=== PATIENT | male | born 1950 | race Caucasian/White ===

== ENCOUNTER 2022-05-07 15:14 | Inpatient (IN) ==
[2022-05-07] MEDS ORDERED: SODIUM CHLORIDE 0.9% 1,000 ML IV STA ×2 (17:34→19:06)
[2022-05-07 18:30] LABS: Basophils % 0.1 % (0.0-0.8); Hematocrit 29.5 VOL% (42.0-52.0); Hemoglobin 10.2 GM/DL (14.0-18.0); Immature Granulocytes % 0.6 %; Immature Granulocytes Absolute 0.07 #; Lymphocytes # 1.3 10*3/uL (1.4-4.0); Lymphocytes % 10.5 % (21.2-54.2); Mean Corpuscular HGB Conc 34.6 GM/DL (32-36); Mean Corpuscular Volume 88.6 FL (87-102); Mean Platelet Volume 10.2 FL (9.6-12.0); Monocytes # 0.9 10*3/uL (0.11-0.8); Monocytes % 7.6 % (1.7-12.7); Neutrophils % 81.2 % (38.7-73.9); Platelet Count 203 T/CUMM (130-400); Red Blood Count 3.33 MC/CUMM (3.8-5.5); Red Cell Distribution Width 12.8 % (9.3-17.3); White Blood Count 12.1 T/CUMM (4-12)
[2022-05-07 18:44] LABS: PT Patient Result 11.5 SECS (10.1-12.1); Partial Thromboplastin Time 32.1 SECS (23.7-32.9)
[2022-05-07 19:05] LABS: Alanine Aminotransferase 18 U/L (16-61); Albumin 2.8 G/DL (3.4-5.0); Alkaline Phosphatase 62 U/L (45-117); Aspartate Amino Transferase 12 U/L (0-37); Blood Urea Nitrogen 67 MG/DL (7-18); Calcium 8.1 MG/DL (8.5-10.1); Carbon Dioxide 23 MMOL/L (21-32); Chloride 93 MMOL/L (98-107); Glucose 74 MG/DL (74-106); Osmolality,Calculated 272.2 MOS/KG (273-304); Sodium 127 MMOL/L (136-145); Total Protein 5.3 G/DL (6.4-8.2)
[2022-05-07 19:09] LABS: Potassium 6.1 MMOL/L (3.5-5.1)
[2022-05-07] MEDS ORDERED: DEXTROSE 50% 25 GM/50 ML VIAL IV STA (19:24)
[2022-05-07] MEDS ORDERED: INSULIN REGULAR 100 UNIT/ML IV STA (19:24)
[2022-05-07] MEDS ORDERED: CALCIUM GLUCONATE RIDER 1,000 MG/50 ML PREMIX IV ONE (19:24)
[2022-05-07] MEDS ORDERED: SODIUM POLYSTYRENE SULFATE 15 GM/60 ML BOTTLE PO STA (19:25)
[2022-05-07] MEDS ORDERED: DEXTROSE 50% 25 GM/50 ML SYRINGE IV STA (19:28)
[2022-05-07] MEDS ORDERED: SODIUM ZIRCONIUM CYCLOSILICATE 10 GM PACK PO ONE (19:37)
[2022-05-07] MEDS ORDERED: ONDANSETRON 4 MG/2 ML VIAL ONE (20:04)
[2022-05-07] MEDS ORDERED: ONDANSETRON 4 MG/2 ML VIAL IV STA (20:10)
[2022-05-07] MEDS ORDERED: GLUCAGON 1 MG VIAL IM PRN (21:05)
[2022-05-07] MEDS ORDERED: NICOTINE 21 MG/24 HR PATCH TRANSDERM PRN (21:05)
[2022-05-07] MEDS ORDERED: hydrALAZINE 20 MG/1 ML VIAL IV PRN (21:05)
[2022-05-07] MEDS ORDERED: MORPHINE 2 MG/1 ML SYRINGE IV PRN (21:05)
[2022-05-07] MEDS ORDERED: ONDANSETRON 4 MG/2 ML VIAL IV PRN (21:05)
[2022-05-07] MEDS ORDERED: ALBUTEROL/IPRATROPIUM 3 ML NEB RESP TX PRN (21:05)
[2022-05-07] MEDS ORDERED: DEXTROSE 10% 250 ML BAG IV PRN (21:14)
[2022-05-07] MEDS ORDERED: PIPERACILLIN/TAZOBACTAM 3,375 MG in SODIUM CHLORIDE 0.9% 100 ML IV SCH (22:00)
[2022-05-07] MEDS ORDERED: PIPERACILLIN/TAZOBACTAM 3,375 MG VIAL IV ONE (22:02)
[2022-05-07] MEDS ORDERED: SODIUM CHLORIDE 0.9% 100 ML IV ONE (22:02)
[2022-05-08] MEDS ORDERED: VANCOMYCIN INJ 1,000 MG in SODIUM CHLORIDE 0.9% 250 ML IV PRN (00:29)
[2022-05-08] MEDS ORDERED: VANCOMYCIN INJ 1,000 MG in SODIUM CHLORIDE 0.9% 250 ML IV SCH (00:30)
[2022-05-08] MEDS ORDERED: VANCOMYCIN INJ 1,750 MG in SODIUM CHLORIDE 0.9% 500 ML IV ONE (01:00)
[2022-05-08] MEDS ORDERED: SODIUM CHLORIDE 0.9% 1,000 ML IV ONE (01:30)
[2022-05-08] MEDS: SODIUM CHLORIDE 0.9% 1,000 ML IV SCH ×3 (02:23→15:31)
[2022-05-08 05:32] LABS: Arterial Base Excess iSTAT -8 MMOL/L (-2.5-2.5); Arterial Bicarbonate iSTAT 17.5 MMOL/L (20-26); Arterial O2 Saturation iSTAT 93 % (95-100); Arterial PCO2 iSTAT 33 MM HG (35-48); Arterial PO2 iSTAT 70 MM HG (80-95); Arterial Total CO2 iSTAT 18 MMO/L (23-27); Arterial pH iSTAT 7.339 (7.35-7.45)
[2022-05-08 05:56] LABS: Basophils % 0.1 % (0.0-0.8); Eosinophils % 0.3 % (0.00-10.9); Hematocrit 26.4 VOL% (42.0-52.0); Hemoglobin 9.1 GM/DL (14.0-18.0); Immature Granulocytes % 0.8 %; Immature Granulocytes Absolute 0.07 #; Lymphocytes # 1.4 10*3/uL (1.4-4.0); Lymphocytes % 15.4 % (21.2-54.2); Mean Corpuscular HGB Conc 34.5 GM/DL (32-36); Mean Corpuscular Volume 89.8 FL (87-102); Mean Platelet Volume 10.4 FL (9.6-12.0); Monocytes # 0.8 10*3/uL (0.11-0.8); Monocytes % 8.3 % (1.7-12.7); Neutrophils % 75.1 % (38.7-73.9); Platelet Count 174 T/CUMM (130-400); Red Blood Count 2.94 MC/CUMM (3.8-5.5); White Blood Count 9.1 T/CUMM (4-12)
[2022-05-08 06:10] LABS: Calcium 7.6 MG/DL (8.5-10.1); Osmolality,Calculated 280.7 MOS/KG (273-304); Potassium 5.1 MMOL/L (3.5-5.1)
[2022-05-08] MEDS: PANTOPRAZOLE 40 MG TABLET PO SCH (08:13)
[2022-05-08] MEDS ORDERED: PIPERACILLIN/TAZOBACTAM 3,375 MG in SODIUM CHLORIDE 0.9% 100 ML IV SCH (10:00)
[2022-05-08] MEDS: MEROPENEM 500 MG in SODIUM CHLORIDE 0.9% 100 ML IV SCH (13:23)
[2022-05-08 17:36] LABS: Bacteria,Urine Occasional /HPF (Few); Mucus,Urine Occasional /LPF (Occasional); Urine Appearance Clear (Clear); Urine Color Yellow (Yellow)
[2022-05-08 17:37] LABS: Bilirubin,Urine Negative (Negative); Blood, Urine Negative (Negative); Glucose,Urine (UA) Negative (Negative); Ketones,Urine Negative (Negative); Nitrite,Urine Negative (Negative); Protein,Urine 30 mg/dL (Negative); Urine Urobilinogen 0.2 eU/dL (<2.0); Urine pH 5.5 (4.5-8.0)
[2022-05-08] MEDS: ASCORBIC ACID 500 MG TABLET PO SCH (21:19)
[2022-05-09 05:47] LABS: Basophils % 0.3 % (0.0-0.8); Eosinophils % 0.3 % (0.00-10.9); Hematocrit 26.1 VOL% (42.0-52.0); Immature Granulocytes % 0.6 %; Immature Granulocytes Absolute 0.04 #; Lymphocytes # 0.8 10*3/uL (1.4-4.0); Lymphocytes % 13.5 % (21.2-54.2); Mean Corpuscular HGB Conc 34.5 GM/DL (32-36); Mean Corpuscular Volume 91.6 FL (87-102); Mean Platelet Volume 11.1 FL (9.6-12.0); Monocytes # 0.6 10*3/uL (0.11-0.8); Monocytes % 9.8 % (1.7-12.7); Neutrophils % 75.5 % (38.7-73.9); Platelet Count 175 T/CUMM (130-400); Red Blood Count 2.85 MC/CUMM (3.8-5.5); Red Cell Distribution Width 13.1 % (9.3-17.3); White Blood Count 6.2 T/CUMM (4-12)
[2022-05-09 06:03] LABS: Calcium 7.7 MG/DL (8.5-10.1); Osmolality,Calculated 275.8 MOS/KG (273-304); Potassium 4.4 MMOL/L (3.5-5.1)
[2022-05-09] MEDS: SODIUM CHLORIDE 0.9% 1,000 ML IV SCH ×2 (07:20→18:00)
[2022-05-09] MEDS: PANTOPRAZOLE 40 MG TABLET PO SCH (08:13)
[2022-05-09] MEDS: ASCORBIC ACID 500 MG TABLET PO SCH ×2 (08:14→22:21)
[2022-05-09] MEDS: ASPIRIN EC 81 MG TABLET PO SCH (08:14)
[2022-05-09] MEDS: CHOLECALCIFEROL 5,000 UNIT TABLET PO SCH (08:14)
[2022-05-09] MEDS: NICOTINE 21 MG/24 HR PATCH TRANSDERM SCH (08:20)
[2022-05-09] MEDS: MIDODRINE 5 MG TABLET PO SCH ×3 (08:44→22:21)
[2022-05-09 13:50] LABS: Calcium 7.7 MG/DL (8.5-10.1); Osmolality,Calculated 281.8 MOS/KG (273-304); Potassium 4.4 MMOL/L (3.5-5.1)
[2022-05-09] MEDS: MEROPENEM 500 MG in SODIUM CHLORIDE 0.9% 100 ML IV SCH (15:40)
[2022-05-10] MEDS: SODIUM CHLORIDE 0.9% 1,000 ML IV SCH ×3 (04:00→20:39)
[2022-05-10 05:35] LABS: Basophils % 0.1 % (0.0-0.8); Eosinophils % 0.3 % (0.00-10.9); Hematocrit 27.7 VOL% (42.0-52.0); Hemoglobin 9.4 GM/DL (14.0-18.0); Immature Granulocytes % 0.4 %; Immature Granulocytes Absolute 0.03 #; Lymphocytes # 1.4 10*3/uL (1.4-4.0); Lymphocytes % 17.6 % (21.2-54.2); Mean Corpuscular HGB Conc 33.9 GM/DL (32-36); Mean Corpuscular Volume 91.7 FL (87-102); Mean Platelet Volume 10.6 FL (9.6-12.0); Monocytes # 0.6 10*3/uL (0.11-0.8); Monocytes % 7.5 % (1.7-12.7); Neutrophils % 74.1 % (38.7-73.9); Platelet Count 227 T/CUMM (130-400); Red Blood Count 3.02 MC/CUMM (3.8-5.5); Red Cell Distribution Width 13.2 % (9.3-17.3); White Blood Count 7.7 T/CUMM (4-12)
[2022-05-10 05:54] LABS: Calcium 7.7 MG/DL (8.5-10.1); Osmolality,Calculated 287.1 MOS/KG (273-304); Potassium 4.1 MMOL/L (3.5-5.1)
[2022-05-10] MEDS: ASCORBIC ACID 500 MG TABLET PO SCH ×2 (09:23→20:38)
[2022-05-10] MEDS: ASPIRIN EC 81 MG TABLET PO SCH (09:23)
[2022-05-10] MEDS: NICOTINE 21 MG/24 HR PATCH TRANSDERM SCH (09:23)
[2022-05-10] MEDS: MIDODRINE 5 MG TABLET PO SCH ×3 (09:23→20:38)
[2022-05-10] MEDS: CHOLECALCIFEROL 5,000 UNIT TABLET PO SCH (09:24)
[2022-05-10] MEDS: PANTOPRAZOLE 40 MG TABLET PO SCH (09:24)
[2022-05-10] MEDS: MEROPENEM 500 MG in SODIUM CHLORIDE 0.9% 100 ML IV SCH (15:10)
[2022-05-11] MEDS ORDERED: ALUMINUM/MAGNES/SIMETH MAX STR 30 ML UDCUP PO ONE (00:06)
[2022-05-11 05:08] LABS: Basophils % 0.3 % (0.0-0.8); Eosinophils # 0.1 10*3/uL (0.0-0.87); Eosinophils % 0.8 % (0.00-10.9); Hemoglobin 9.1 GM/DL (14.0-18.0); Immature Granulocytes % 0.3 %; Immature Granulocytes Absolute 0.02 #; Lymphocytes # 1.1 10*3/uL (1.4-4.0); Lymphocytes % 18.7 % (21.2-54.2); Mean Platelet Volume 10.4 FL (9.6-12.0); Monocytes # 0.6 10*3/uL (0.11-0.8); Neutrophils % 69.9 % (38.7-73.9); Platelet Count 199 T/CUMM (130-400); Red Blood Count 2.89 MC/CUMM (3.8-5.5)
[2022-05-11 05:27] LABS: Osmolality,Calculated 284.2 MOS/KG (273-304); Potassium 4.2 MMOL/L (3.5-5.1)
[2022-05-11] MEDS: ASCORBIC ACID 500 MG TABLET PO SCH ×2 (10:30→22:17)
[2022-05-11] MEDS: MIDODRINE 5 MG TABLET PO SCH ×3 (10:30→21:16)
[2022-05-11] MEDS: PANTOPRAZOLE 40 MG TABLET PO SCH (10:30)
[2022-05-11] MEDS: ASPIRIN EC 81 MG TABLET PO SCH (10:30)
[2022-05-11] MEDS: CHOLECALCIFEROL 5,000 UNIT TABLET PO SCH (10:30)
[2022-05-11] MEDS: NICOTINE 21 MG/24 HR PATCH TRANSDERM SCH (10:31)
[2022-05-11] MEDS: SODIUM CHLORIDE 0.9% 1,000 ML IV SCH (12:38)
[2022-05-11] MEDS: MEROPENEM 500 MG in SODIUM CHLORIDE 0.9% 100 ML IV SCH (14:34)
[2022-05-12 05:06] LABS: Basophils % 0.3 % (0.0-0.8); Eosinophils # 0.1 10*3/uL (0.0-0.87); Eosinophils % 1.5 % (0.00-10.9); Hematocrit 29.1 VOL% (42.0-52.0); Hemoglobin 9.9 GM/DL (14.0-18.0); Immature Granulocytes % 0.7 %; Immature Granulocytes Absolute 0.05 #; Lymphocytes # 1.4 10*3/uL (1.4-4.0); Lymphocytes % 19.2 % (21.2-54.2); Mean Corpuscular Volume 90.4 FL (87-102); Mean Platelet Volume 10.2 FL (9.6-12.0); Monocytes # 0.7 10*3/uL (0.11-0.8); Monocytes % 9.9 % (1.7-12.7); Neutrophils % 68.4 % (38.7-73.9); Platelet Count 255 T/CUMM (130-400); Red Blood Count 3.22 MC/CUMM (3.8-5.5); White Blood Count 7.4 T/CUMM (4-12)
[2022-05-12 05:27] LABS: Calcium 8.3 MG/DL (8.5-10.1); Osmolality,Calculated 287.8 MOS/KG (273-304); Potassium 3.8 MMOL/L (3.5-5.1)
[2022-05-12] MEDS: MIDODRINE 5 MG TABLET PO SCH ×3 (08:48→21:45)
[2022-05-12] MEDS: ASPIRIN EC 81 MG TABLET PO SCH (08:50)
[2022-05-12] MEDS: PANTOPRAZOLE 40 MG TABLET PO SCH (08:50)
[2022-05-12] MEDS: ASCORBIC ACID 500 MG TABLET PO SCH ×2 (08:50→21:45)
[2022-05-12] MEDS: CHOLECALCIFEROL 5,000 UNIT TABLET PO SCH (09:06)
[2022-05-12] MEDS: NICOTINE 21 MG/24 HR PATCH TRANSDERM SCH (09:10)
[2022-05-12] MEDS: MEROPENEM 500 MG in SODIUM CHLORIDE 0.9% 100 ML IV SCH (13:59)
[2022-05-12] MEDS: ZALEPLON 5 MG CAPSULE PO PRN (21:44)
[2022-05-12] MEDS: APIXABAN 5 MG TABLET PO SCH (21:44)
[2022-05-13 05:47] LABS: Basophils % 0.3 % (0.0-0.8); Eosinophils # 0.2 10*3/uL (0.0-0.87); Eosinophils % 2.9 % (0.00-10.9); Hematocrit 25.1 VOL% (42.0-52.0); Hemoglobin 8.7 GM/DL (14.0-18.0); Immature Granulocytes % 0.6 %; Immature Granulocytes Absolute 0.04 #; Lymphocytes # 1.4 10*3/uL (1.4-4.0); Lymphocytes % 21.6 % (21.2-54.2); Mean Corpuscular HGB Conc 34.7 GM/DL (32-36); Mean Corpuscular Volume 90.9 FL (87-102); Mean Platelet Volume 10.3 FL (9.6-12.0); Monocytes # 0.9 10*3/uL (0.11-0.8); Monocytes % 13.1 % (1.7-12.7); Neutrophils % 61.5 % (38.7-73.9); Platelet Count 233 T/CUMM (130-400); Red Blood Count 2.76 MC/CUMM (3.8-5.5); Red Cell Distribution Width 13.2 % (9.3-17.3); White Blood Count 6.7 T/CUMM (4-12)
[2022-05-13 06:01] LABS: Calcium 8.1 MG/DL (8.5-10.1); Osmolality,Calculated 281.4 MOS/KG (273-304); Potassium 3.9 MMOL/L (3.5-5.1)
[2022-05-13 06:07] LABS: Albumin 2.2 G/DL (3.4-5.0); Bilirubin,Direct 0.21 MG/DL (0.0-0.20); Bilirubin,Indirect 0.3 MG/DL (0.0-1.0); Bilirubin,Total 0.5 MG/DL (0.20-1.00); Total Protein 4.4 G/DL (6.4-8.2)
[2022-05-13] MEDS ORDERED: MAGNESIUM SULF RIDER 2 GM/50 ML PREMIX IV ONE (07:32)
[2022-05-13] MEDS: ASCORBIC ACID 500 MG TABLET PO SCH ×2 (08:16→22:18)
[2022-05-13] MEDS: CHOLECALCIFEROL 5,000 UNIT TABLET PO SCH (08:16)
[2022-05-13] MEDS: ASPIRIN EC 81 MG TABLET PO SCH (08:16)
[2022-05-13] MEDS: MIDODRINE 5 MG TABLET PO SCH ×3 (08:17→22:19)
[2022-05-13] MEDS: PANTOPRAZOLE 40 MG TABLET PO SCH (08:17)
[2022-05-13] MEDS: APIXABAN 5 MG TABLET PO SCH ×2 (08:18→22:18)
[2022-05-13] MEDS: NICOTINE 21 MG/24 HR PATCH TRANSDERM SCH (08:32)
[2022-05-13] MEDS: CLORAZEPATE 3.75 MG TABLET PO PRN (22:18)
[2022-05-13] MEDS: ZALEPLON 5 MG CAPSULE PO PRN (22:18)
[2022-05-14] MEDS: CLORAZEPATE 3.75 MG TABLET PO PRN ×2 (04:19→20:57)
[2022-05-14 08:12] LABS: Basophils % 0.1 % (0.0-0.8); Eosinophils # 0.2 10*3/uL (0.0-0.87); Eosinophils % 2.2 % (0.00-10.9); Hematocrit 27.2 VOL% (42.0-52.0); Hemoglobin 9.3 GM/DL (14.0-18.0); Immature Granulocytes % 0.6 %; Immature Granulocytes Absolute 0.04 #; Lymphocytes # 1.7 10*3/uL (1.4-4.0); Lymphocytes % 24.8 % (21.2-54.2); Mean Corpuscular HGB Conc 34.2 GM/DL (32-36); Mean Platelet Volume 9.7 FL (9.6-12.0); Monocytes # 0.8 10*3/uL (0.11-0.8); Monocytes % 11.2 % (1.7-12.7); Neutrophils % 61.1 % (38.7-73.9); Platelet Count 256 T/CUMM (130-400); Red Blood Count 2.99 MC/CUMM (3.8-5.5); Red Cell Distribution Width 13.1 % (9.3-17.3); White Blood Count 6.9 T/CUMM (4-12)
[2022-05-14 08:30] LABS: Calcium 8.2 MG/DL (8.5-10.1); Osmolality,Calculated 280.4 MOS/KG (273-304); Potassium 4.1 MMOL/L (3.5-5.1)
[2022-05-14] MEDS: CHOLECALCIFEROL 5,000 UNIT TABLET PO SCH (09:12)
[2022-05-14] MEDS: PANTOPRAZOLE 40 MG TABLET PO SCH (09:12)
[2022-05-14] MEDS: APIXABAN 5 MG TABLET PO SCH ×2 (09:12→20:58)
[2022-05-14] MEDS: ASCORBIC ACID 500 MG TABLET PO SCH ×2 (09:13→20:58)
[2022-05-14] MEDS: ASPIRIN EC 81 MG TABLET PO SCH (09:13)
[2022-05-14] MEDS: NICOTINE 21 MG/24 HR PATCH TRANSDERM SCH (09:13)
[2022-05-14] MEDS: MIDODRINE 5 MG TABLET PO SCH ×3 (09:17→20:58)
[2022-05-15 05:10] LABS: Basophils % 0.2 % (0.0-0.8); Eosinophils # 0.1 10*3/uL (0.0-0.87); Hemoglobin 8.8 GM/DL (14.0-18.0); Immature Granulocytes % 0.5 %; Immature Granulocytes Absolute 0.03 #; Lymphocytes # 1.4 10*3/uL (1.4-4.0); Lymphocytes % 20.5 % (21.2-54.2); Mean Corpuscular HGB Conc 33.8 GM/DL (32-36); Mean Corpuscular Volume 91.2 FL (87-102); Mean Platelet Volume 9.8 FL (9.6-12.0); Monocytes # 0.6 10*3/uL (0.11-0.8); Monocytes % 9.6 % (1.7-12.7); Neutrophils % 67.2 % (38.7-73.9); Platelet Count 238 T/CUMM (130-400); Red Blood Count 2.85 MC/CUMM (3.8-5.5); Red Cell Distribution Width 12.8 % (9.3-17.3); White Blood Count 6.6 T/CUMM (4-12)
[2022-05-15 05:28] LABS: Calcium 8.1 MG/DL (8.5-10.1); Osmolality,Calculated 282.2 MOS/KG (273-304); Potassium 4.4 MMOL/L (3.5-5.1)
[2022-05-15] MEDS: MIDODRINE 5 MG TABLET PO SCH ×2 (09:27→14:37)
[2022-05-15] MEDS: ASPIRIN EC 81 MG TABLET PO SCH (09:27)
[2022-05-15] MEDS: APIXABAN 5 MG TABLET PO SCH ×2 (09:27→21:14)
[2022-05-15] MEDS: CHOLECALCIFEROL 5,000 UNIT TABLET PO SCH (09:27)
[2022-05-15] MEDS: ASCORBIC ACID 500 MG TABLET PO SCH ×2 (09:27→21:14)
[2022-05-15] MEDS: PANTOPRAZOLE 40 MG TABLET PO SCH (09:27)
[2022-05-15] MEDS: NICOTINE 21 MG/24 HR PATCH TRANSDERM SCH (09:28)
[2022-05-15] MEDS ORDERED: ALUM/MAG/SIMETH/LIDO VISC 1:1 30 ML BOTTLE PO ONE (10:34)
[2022-05-15] MEDS: FUROSEMIDE 40 MG TABLET PO SCH (11:57)
[2022-05-15] MEDS: CLORAZEPATE 3.75 MG TABLET PO PRN (21:18)
[2022-05-16 05:29] LABS: Basophils % 0.3 % (0.0-0.8); Eosinophils # 0.1 10*3/uL (0.0-0.87); Eosinophils % 1.3 % (0.00-10.9); Hematocrit 26.4 VOL% (42.0-52.0); Hemoglobin 8.9 GM/DL (14.0-18.0); Immature Granulocytes % 0.4 %; Immature Granulocytes Absolute 0.03 #; Lymphocytes # 1.8 10*3/uL (1.4-4.0); Lymphocytes % 25.5 % (21.2-54.2); Mean Corpuscular HGB Conc 33.7 GM/DL (32-36); Mean Corpuscular Volume 91.3 FL (87-102); Mean Platelet Volume 10.3 FL (9.6-12.0); Monocytes # 0.6 10*3/uL (0.11-0.8); Monocytes % 7.9 % (1.7-12.7); Neutrophils % 64.6 % (38.7-73.9); Platelet Count 273 T/CUMM (130-400); Red Blood Count 2.89 MC/CUMM (3.8-5.5); Red Cell Distribution Width 12.9 % (9.3-17.3)
[2022-05-16 05:50] LABS: Calcium 8.3 MG/DL (8.5-10.1); Osmolality,Calculated 284.1 MOS/KG (273-304); Potassium 3.9 MMOL/L (3.5-5.1)
[2022-05-16] MEDS: ASCORBIC ACID 500 MG TABLET PO SCH ×2 (09:48→21:37)
[2022-05-16] MEDS: FUROSEMIDE 40 MG TABLET PO SCH (09:48)
[2022-05-16] MEDS: NICOTINE 21 MG/24 HR PATCH TRANSDERM SCH (09:48)
[2022-05-16] MEDS: ASPIRIN EC 81 MG TABLET PO SCH (09:48)
[2022-05-16] MEDS: PANTOPRAZOLE 40 MG TABLET PO SCH (09:48)
[2022-05-16] MEDS: CHOLECALCIFEROL 5,000 UNIT TABLET PO SCH (09:48)
[2022-05-16] MEDS: APIXABAN 5 MG TABLET PO SCH ×2 (09:48→21:37)
[2022-05-16] MEDS ORDERED: ALBUMIN 25% 12.5 GM/50 ML VIAL IV ONE (15:00)
[2022-05-16] MEDS ORDERED: FUROSEMIDE 40 MG/4 ML VIAL IV ONE (15:30)
[2022-05-16] MEDS ORDERED: ALUMINUM/MAGNES/SIMETH MAX STR 30 ML UDCUP PO PRN (18:23)
[2022-05-16] MEDS: CLORAZEPATE 3.75 MG TABLET PO PRN (21:37)
[2022-05-17] MEDS: CLORAZEPATE 3.75 MG TABLET PO PRN ×2 (03:33→21:02)
[2022-05-17 05:19] LABS: Basophils % 0.2 % (0.0-0.8); Eosinophils # 0.1 10*3/uL (0.0-0.87); Eosinophils % 1.3 % (0.00-10.9); Hematocrit 24.9 VOL% (42.0-52.0); Hemoglobin 8.6 GM/DL (14.0-18.0); Immature Granulocytes % 0.5 %; Immature Granulocytes Absolute 0.03 #; Lymphocytes # 1.3 10*3/uL (1.4-4.0); Lymphocytes % 20.6 % (21.2-54.2); Mean Corpuscular HGB Conc 34.5 GM/DL (32-36); Mean Corpuscular Volume 90.5 FL (87-102); Mean Platelet Volume 10.2 FL (9.6-12.0); Monocytes # 0.6 10*3/uL (0.11-0.8); Monocytes % 8.7 % (1.7-12.7); Neutrophils % 68.7 % (38.7-73.9); Platelet Count 290 T/CUMM (130-400); Red Blood Count 2.75 MC/CUMM (3.8-5.5); Red Cell Distribution Width 13.1 % (9.3-17.3); White Blood Count 6.3 T/CUMM (4-12)
[2022-05-17 05:40] LABS: Calcium 8.2 MG/DL (8.5-10.1); Osmolality,Calculated 289.8 MOS/KG (273-304); Potassium 3.9 MMOL/L (3.5-5.1)
[2022-05-17] MEDS: ASPIRIN EC 81 MG TABLET PO SCH (09:23)
[2022-05-17] MEDS: APIXABAN 5 MG TABLET PO SCH ×2 (09:23→21:02)
[2022-05-17] MEDS: ASCORBIC ACID 500 MG TABLET PO SCH ×2 (09:23→21:02)
[2022-05-17] MEDS: PANTOPRAZOLE 40 MG TABLET PO SCH (09:24)
[2022-05-17] MEDS: NICOTINE 21 MG/24 HR PATCH TRANSDERM SCH (09:26)
[2022-05-17] MEDS: SENNA 8.6 MG TABLET PO SCH (09:30)
[2022-05-17] MEDS: CHOLECALCIFEROL 5,000 UNIT TABLET PO SCH (09:30)
[2022-05-17] MEDS ORDERED: FUROSEMIDE 40 MG TABLET PO SCH (15:27)
[2022-05-17] MEDS: INSULIN LISPRO 100 UNIT/ML SUBCUT SCH (21:03)
[2022-05-18 05:26] LABS: Basophils % 0.2 % (0.0-0.8); Eosinophils % 0.6 % (0.00-10.9); Hematocrit 23.6 VOL% (42.0-52.0); Immature Granulocytes % 0.5 %; Immature Granulocytes Absolute 0.03 #; Lymphocytes # 0.9 10*3/uL (1.4-4.0); Lymphocytes % 13.1 % (21.2-54.2); Mean Corpuscular HGB Conc 33.9 GM/DL (32-36); Mean Corpuscular Volume 91.8 FL (87-102); Monocytes # 0.4 10*3/uL (0.11-0.8); Monocytes % 6.8 % (1.7-12.7); Neutrophils % 78.8 % (38.7-73.9); Platelet Count 286 T/CUMM (130-400); Red Blood Count 2.57 MC/CUMM (3.8-5.5); Red Cell Distribution Width 13.1 % (9.3-17.3); White Blood Count 6.5 T/CUMM (4-12)
[2022-05-18 05:40] LABS: Osmolality,Calculated 281.2 MOS/KG (273-304); Potassium 3.6 MMOL/L (3.5-5.1)
[2022-05-18] MEDS: ASCORBIC ACID 500 MG TABLET PO SCH ×2 (08:56→21:31)
[2022-05-18] MEDS: CHOLECALCIFEROL 5,000 UNIT TABLET PO SCH (08:56)
[2022-05-18] MEDS: SENNA 8.6 MG TABLET PO SCH (08:57)
[2022-05-18] MEDS: TORSEMIDE 20 MG TABLET PO SCH ×2 (08:57→18:00)
[2022-05-18] MEDS: NICOTINE 21 MG/24 HR PATCH TRANSDERM SCH (08:57)
[2022-05-18] MEDS: PANTOPRAZOLE 40 MG TABLET PO SCH (08:57)
[2022-05-18] MEDS: ASPIRIN EC 81 MG TABLET PO SCH (08:57)
[2022-05-18] MEDS: APIXABAN 5 MG TABLET PO SCH ×2 (08:57→21:31)
[2022-05-18] MEDS: INSULIN LISPRO 100 UNIT/ML SUBCUT SCH ×4 (08:58→21:33)
[2022-05-18] MEDS: SODIUM BICARBONATE 650 MG TABLET PO SCH ×2 (12:37→21:31)
[2022-05-18] MEDS: CLORAZEPATE 3.75 MG TABLET PO PRN (21:30)
[2022-05-19] MEDS: INSULIN LISPRO 100 UNIT/ML SUBCUT SCH ×4 (07:33→21:48)
[2022-05-19] MEDS: SODIUM BICARBONATE 650 MG TABLET PO SCH ×2 (08:13→21:41)
[2022-05-19] MEDS: TORSEMIDE 20 MG TABLET PO SCH (08:13)
[2022-05-19] MEDS: SENNA 8.6 MG TABLET PO SCH (08:13)
[2022-05-19] MEDS: ASCORBIC ACID 500 MG TABLET PO SCH ×2 (08:14→21:42)
[2022-05-19] MEDS: ASPIRIN EC 81 MG TABLET PO SCH (08:14)
[2022-05-19] MEDS: CHOLECALCIFEROL 5,000 UNIT TABLET PO SCH (08:14)
[2022-05-19] MEDS: PANTOPRAZOLE 40 MG TABLET PO SCH (08:14)
[2022-05-19] MEDS: APIXABAN 5 MG TABLET PO SCH ×2 (08:14→21:42)
[2022-05-19] MEDS: NICOTINE 21 MG/24 HR PATCH TRANSDERM SCH (08:16)
[2022-05-19 08:56] LABS: Basophils % 0.4 % (0.0-0.8); Eosinophils # 0.1 10*3/uL (0.0-0.87); Eosinophils % 1.5 % (0.00-10.9); Hematocrit 28.2 VOL% (42.0-52.0); Hemoglobin 9.5 GM/DL (14.0-18.0); Immature Granulocytes % 0.5 %; Immature Granulocytes Absolute 0.04 #; Lymphocytes # 1.7 10*3/uL (1.4-4.0); Lymphocytes % 23.7 % (21.2-54.2); Mean Corpuscular HGB Conc 33.7 GM/DL (32-36); Mean Corpuscular Volume 91.9 FL (87-102); Mean Platelet Volume 9.9 FL (9.6-12.0); Monocytes # 0.5 10*3/uL (0.11-0.8); Monocytes % 7.4 % (1.7-12.7); Neutrophils % 66.5 % (38.7-73.9); Platelet Count 379 T/CUMM (130-400); Red Blood Count 3.07 MC/CUMM (3.8-5.5); Red Cell Distribution Width 13.2 % (9.3-17.3); White Blood Count 7.3 T/CUMM (4-12)
[2022-05-19 09:13] LABS: Calcium 8.2 MG/DL (8.5-10.1); Osmolality,Calculated 280.5 MOS/KG (273-304); Potassium 4.1 MMOL/L (3.5-5.1)
[2022-05-19] MEDS ORDERED: SODIUM CHLORIDE 0.9% 2,000 ML IV ONE (15:28)
[2022-05-19] MEDS ORDERED: SODIUM CHLORIDE 0.9% 1,000 ML IV SCH ×2 (15:30)
[2022-05-19] MEDS: SODIUM CHLORIDE 0.9% 1,000 ML IV SCH (17:18)
[2022-05-19] MEDS: CLORAZEPATE 3.75 MG TABLET PO PRN (21:48)
[2022-05-20 06:54] LABS: Basophils % 0.5 % (0.0-0.8); Eosinophils # 0.1 10*3/uL (0.0-0.87); Eosinophils % 1.5 % (0.00-10.9); Hematocrit 24.6 VOL% (42.0-52.0); Hemoglobin 8.4 GM/DL (14.0-18.0); Immature Granulocytes % 0.3 %; Immature Granulocytes Absolute 0.02 #; Lymphocytes # 1.8 10*3/uL (1.4-4.0); Lymphocytes % 29.8 % (21.2-54.2); Mean Corpuscular HGB Conc 34.1 GM/DL (32-36); Mean Corpuscular Volume 91.8 FL (87-102); Monocytes # 0.6 10*3/uL (0.11-0.8); Monocytes % 9.4 % (1.7-12.7); Neutrophils % 58.5 % (38.7-73.9); Platelet Count 342 T/CUMM (130-400); Red Blood Count 2.68 MC/CUMM (3.8-5.5); Red Cell Distribution Width 13.2 % (9.3-17.3)
[2022-05-20 07:07] LABS: Calcium 7.8 MG/DL (8.5-10.1); Osmolality,Calculated 283.1 MOS/KG (273-304); Potassium 3.8 MMOL/L (3.5-5.1)
[2022-05-20] MEDS: SODIUM CHLORIDE 0.9% 1,000 ML IV SCH ×2 (08:58→22:09)
[2022-05-20] MEDS: INSULIN LISPRO 100 UNIT/ML SUBCUT SCH ×4 (09:02→22:06)
[2022-05-20] MEDS: NICOTINE 21 MG/24 HR PATCH TRANSDERM SCH (09:03)
[2022-05-20] MEDS: SENNA 8.6 MG TABLET PO SCH (09:04)
[2022-05-20] MEDS: PANTOPRAZOLE 40 MG TABLET PO SCH (09:04)
[2022-05-20] MEDS: SODIUM BICARBONATE 650 MG TABLET PO SCH ×2 (09:04→22:06)
[2022-05-20] MEDS: ASPIRIN EC 81 MG TABLET PO SCH (09:04)
[2022-05-20] MEDS: ASCORBIC ACID 500 MG TABLET PO SCH ×2 (09:04→22:06)
[2022-05-20] MEDS: CHOLECALCIFEROL 5,000 UNIT TABLET PO SCH (09:05)
[2022-05-20] MEDS: APIXABAN 5 MG TABLET PO SCH ×2 (09:05→22:06)
[2022-05-20] MEDS: CLORAZEPATE 3.75 MG TABLET PO PRN (22:09)
[2022-05-21 04:43] LABS: Basophils % 0.8 % (0.0-0.8); Eosinophils # 0.1 10*3/uL (0.0-0.87); Eosinophils % 1.6 % (0.00-10.9); Hemoglobin 8.9 GM/DL (14.0-18.0); Immature Granulocytes % 0.2 %; Immature Granulocytes Absolute 0.01 #; Lymphocytes # 1.7 10*3/uL (1.4-4.0); Lymphocytes % 32.9 % (21.2-54.2); Mean Corpuscular HGB Conc 34.2 GM/DL (32-36); Mean Corpuscular Volume 91.9 FL (87-102); Mean Platelet Volume 9.6 FL (9.6-12.0); Monocytes # 0.5 10*3/uL (0.11-0.8); Monocytes % 9.9 % (1.7-12.7); Neutrophils % 54.6 % (38.7-73.9); Platelet Count 391 T/CUMM (130-400); Red Blood Count 2.83 MC/CUMM (3.8-5.5); Red Cell Distribution Width 13.3 % (9.3-17.3); White Blood Count 5.1 T/CUMM (4-12)
[2022-05-21 05:04] LABS: Calcium 7.8 MG/DL (8.5-10.1); Osmolality,Calculated 289.5 MOS/KG (273-304); Potassium 3.6 MMOL/L (3.5-5.1)
[2022-05-21] MEDS: ASCORBIC ACID 500 MG TABLET PO SCH ×2 (08:19→21:24)
[2022-05-21] MEDS: SODIUM BICARBONATE 650 MG TABLET PO SCH ×2 (08:19→21:24)
[2022-05-21] MEDS: ASPIRIN EC 81 MG TABLET PO SCH (08:20)
[2022-05-21] MEDS: APIXABAN 5 MG TABLET PO SCH ×2 (08:20→21:24)
[2022-05-21] MEDS: SENNA 8.6 MG TABLET PO SCH (08:21)
[2022-05-21] MEDS: PANTOPRAZOLE 40 MG TABLET PO SCH (08:21)
[2022-05-21] MEDS: INSULIN LISPRO 100 UNIT/ML SUBCUT SCH ×4 (08:22→21:23)
[2022-05-21] MEDS: CHOLECALCIFEROL 5,000 UNIT TABLET PO SCH (08:22)
[2022-05-21] MEDS: NICOTINE 21 MG/24 HR PATCH TRANSDERM SCH (08:40)
[2022-05-21] MEDS: SODIUM CHLORIDE 0.9% 1,000 ML IV SCH ×2 (10:51→14:30)
[2022-05-22] MEDS ORDERED: CLORAZEPATE 3.75 MG TABLET PO ONE ×2 (04:00→21:52)
[2022-05-22 04:34] LABS: Basophils % 0.5 % (0.0-0.8); Eosinophils # 0.1 10*3/uL (0.0-0.87); Eosinophils % 1.2 % (0.00-10.9); Hematocrit 26.5 VOL% (42.0-52.0); Hemoglobin 8.8 GM/DL (14.0-18.0); Immature Granulocytes % 0.4 %; Immature Granulocytes Absolute 0.03 #; Lymphocytes # 1.7 10*3/uL (1.4-4.0); Lymphocytes % 21.7 % (21.2-54.2); Mean Corpuscular HGB Conc 33.2 GM/DL (32-36); Mean Corpuscular Volume 93.6 FL (87-102); Mean Platelet Volume 10.1 FL (9.6-12.0); Monocytes # 0.6 10*3/uL (0.11-0.8); Monocytes % 7.5 % (1.7-12.7); Neutrophils % 68.7 % (38.7-73.9); Platelet Count 394 T/CUMM (130-400); Red Blood Count 2.83 MC/CUMM (3.8-5.5); Red Cell Distribution Width 13.3 % (9.3-17.3); White Blood Count 7.7 T/CUMM (4-12)
[2022-05-22 04:53] LABS: Calcium 7.9 MG/DL (8.5-10.1); Osmolality,Calculated 288.7 MOS/KG (273-304); Potassium 3.6 MMOL/L (3.5-5.1)
[2022-05-22] MEDS: INSULIN LISPRO 100 UNIT/ML SUBCUT SCH ×4 (09:16→21:11)
[2022-05-22] MEDS: NICOTINE 21 MG/24 HR PATCH TRANSDERM SCH (09:16)
[2022-05-22] MEDS: SENNA 8.6 MG TABLET PO SCH (09:17)
[2022-05-22] MEDS: ASCORBIC ACID 500 MG TABLET PO SCH ×2 (09:17→21:11)
[2022-05-22] MEDS: PANTOPRAZOLE 40 MG TABLET PO SCH (09:17)
[2022-05-22] MEDS: ASPIRIN EC 81 MG TABLET PO SCH (09:17)
[2022-05-22] MEDS: CHOLECALCIFEROL 5,000 UNIT TABLET PO SCH (09:17)
[2022-05-22] MEDS: APIXABAN 5 MG TABLET PO SCH ×2 (09:17→21:12)
[2022-05-22] MEDS: SODIUM BICARBONATE 650 MG TABLET PO SCH ×2 (09:17→21:12)
[2022-05-22] MEDS: SODIUM CHLORIDE 0.9% 1,000 ML IV SCH ×3 (12:40→18:16)
[2022-05-23] MEDS: SODIUM CHLORIDE 0.9% 1,000 ML IV SCH ×3 (01:06→13:45)
[2022-05-23 06:25] LABS: Calcium 8.2 MG/DL (8.5-10.1); Osmolality,Calculated 290.4 MOS/KG (273-304); Potassium 3.9 MMOL/L (3.5-5.1)
[2022-05-23] MEDS: INSULIN LISPRO 100 UNIT/ML SUBCUT SCH ×4 (08:11→21:37)
[2022-05-23] MEDS: SODIUM BICARBONATE 650 MG TABLET PO SCH ×2 (09:14→21:37)
[2022-05-23] MEDS: SENNA 8.6 MG TABLET PO SCH (09:14)
[2022-05-23] MEDS: CHOLECALCIFEROL 5,000 UNIT TABLET PO SCH (09:15)
[2022-05-23] MEDS: NICOTINE 21 MG/24 HR PATCH TRANSDERM SCH (09:15)
[2022-05-23] MEDS: APIXABAN 5 MG TABLET PO SCH ×2 (09:15→21:37)
[2022-05-23] MEDS: ASPIRIN EC 81 MG TABLET PO SCH (09:15)
[2022-05-23] MEDS: PANTOPRAZOLE 40 MG TABLET PO SCH (09:15)
[2022-05-23] MEDS: ASCORBIC ACID 500 MG TABLET PO SCH ×2 (09:15→21:37)
[2022-05-23] MEDS ORDERED: MELATONIN 3 MG TABLET PO PRN (10:26)
[2022-05-23 18:31] LABS: Arterial Base Excess iSTAT -8 MMOL/L (-2.5-2.5); Arterial O2 Saturation iSTAT 96 % (95-100); Arterial PCO2 iSTAT 29 MM HG (35-48); Arterial PO2 iSTAT 81 MM HG (80-95); Arterial Total CO2 iSTAT 17 MMO/L (23-27); Arterial pH iSTAT 7.358 (7.35-7.45)
[2022-05-23] MEDS ORDERED: PIPERACILLIN/TAZOBACTAM 2,250 MG in SODIUM CHLORIDE 0.9% 100 ML IV ONE (19:30)
[2022-05-23] MEDS ORDERED: CLORAZEPATE 3.75 MG TABLET PO ONE (21:00)
[2022-05-24] MEDS ORDERED: CLORAZEPATE 3.75 MG TABLET PO ONE (04:31)
[2022-05-24 05:46] LABS: Basophils % 0.8 % (0.0-0.8); Eosinophils % 0.8 % (0.00-10.9); Hematocrit 26.5 VOL% (42.0-52.0); Hemoglobin 8.6 GM/DL (14.0-18.0); Immature Granulocytes % 0.2 %; Immature Granulocytes Absolute 0.01 #; Lymphocytes # 1.3 10*3/uL (1.4-4.0); Lymphocytes % 25.3 % (21.2-54.2); Mean Corpuscular HGB Conc 32.5 GM/DL (32-36); Mean Platelet Volume 10.2 FL (9.6-12.0); Monocytes # 0.4 10*3/uL (0.11-0.8); Monocytes % 8.1 % (1.7-12.7); Neutrophils % 64.8 % (38.7-73.9); Platelet Count 405 T/CUMM (130-400); Red Blood Count 2.79 MC/CUMM (3.8-5.5); Red Cell Distribution Width 13.4 % (9.3-17.3); White Blood Count 5.2 T/CUMM (4-12)
[2022-05-24 06:12] LABS: Calcium 8.2 MG/DL (8.5-10.1); Osmolality,Calculated 292.4 MOS/KG (273-304); Potassium 3.7 MMOL/L (3.5-5.1)
[2022-05-24] MEDS: INSULIN LISPRO 100 UNIT/ML SUBCUT SCH ×4 (08:27→22:11)
[2022-05-24] MEDS: NICOTINE 21 MG/24 HR PATCH TRANSDERM SCH (08:27)
[2022-05-24] MEDS: APIXABAN 5 MG TABLET PO SCH ×2 (08:28→22:10)
[2022-05-24] MEDS: SENNA 8.6 MG TABLET PO SCH (08:28)
[2022-05-24] MEDS: ASCORBIC ACID 500 MG TABLET PO SCH ×2 (08:28→22:10)
[2022-05-24] MEDS: SODIUM BICARBONATE 650 MG TABLET PO SCH ×2 (08:28→22:10)
[2022-05-24] MEDS: PANTOPRAZOLE 40 MG TABLET PO SCH (08:28)
[2022-05-24] MEDS: CHOLECALCIFEROL 5,000 UNIT TABLET PO SCH (08:28)
[2022-05-24] MEDS: ASPIRIN EC 81 MG TABLET PO SCH (08:29)
[2022-05-25] MEDS: CLORAZEPATE 3.75 MG TABLET PO PRN (03:55)
[2022-05-25 05:22] LABS: Calcium 7.9 MG/DL (8.5-10.1); Potassium 3.6 MMOL/L (3.5-5.1)
[2022-05-25] MEDS: INSULIN LISPRO 100 UNIT/ML SUBCUT SCH ×4 (08:16→20:01)
[2022-05-25] MEDS: APIXABAN 5 MG TABLET PO SCH (08:57)
[2022-05-25] MEDS: ASPIRIN EC 81 MG TABLET PO SCH (08:57)
[2022-05-25] MEDS: SODIUM BICARBONATE 650 MG TABLET PO SCH ×2 (08:57→21:13)
[2022-05-25] MEDS: ASCORBIC ACID 500 MG TABLET PO SCH ×2 (08:57→21:13)
[2022-05-25] MEDS: CHOLECALCIFEROL 5,000 UNIT TABLET PO SCH (08:57)
[2022-05-25] MEDS: PANTOPRAZOLE 40 MG TABLET PO SCH (08:58)
[2022-05-25] MEDS: NICOTINE 21 MG/24 HR PATCH TRANSDERM SCH (08:58)
[2022-05-25] MEDS: SENNA 8.6 MG TABLET PO SCH (08:58)
[2022-05-26 04:57] LABS: Basophils # 0.1 10*3/uL (0.0-0.2); Basophils % 1.2 % (0.0-0.8); Eosinophils # 0.1 10*3/uL (0.0-0.87); Eosinophils % 1.9 % (0.00-10.9); Hemoglobin 9.1 GM/DL (14.0-18.0); Immature Granulocytes % 0.6 %; Immature Granulocytes Absolute 0.03 #; Lymphocytes # 1.2 10*3/uL (1.4-4.0); Lymphocytes % 23.6 % (21.2-54.2); Mean Corpuscular HGB Conc 32.5 GM/DL (32-36); Mean Corpuscular Volume 95.2 FL (87-102); Mean Platelet Volume 9.5 FL (9.6-12.0); Monocytes # 0.4 10*3/uL (0.11-0.8); Monocytes % 7.8 % (1.7-12.7); Neutrophils % 64.9 % (38.7-73.9); Platelet Count 348 T/CUMM (130-400); Red Blood Count 2.94 MC/CUMM (3.8-5.5); Red Cell Distribution Width 13.7 % (9.3-17.3); White Blood Count 5.2 T/CUMM (4-12)
[2022-05-26 05:08] LABS: PT Patient Result 10.8 SECS (10.1-12.1); Partial Thromboplastin Time 29.4 SECS (23.7-32.9)
[2022-05-26 05:12] LABS: Calcium 7.9 MG/DL (8.5-10.1)
[2022-05-26] MEDS: INSULIN LISPRO 100 UNIT/ML SUBCUT SCH ×4 (07:48→22:03)
[2022-05-26] MEDS: ASPIRIN EC 81 MG TABLET PO SCH (09:00)
[2022-05-26] MEDS: CHOLECALCIFEROL 5,000 UNIT TABLET PO SCH (09:00)
[2022-05-26] MEDS: ASCORBIC ACID 500 MG TABLET PO SCH ×2 (09:00→22:00)
[2022-05-26] MEDS: SENNA 8.6 MG TABLET PO SCH (09:00)
[2022-05-26] MEDS: PANTOPRAZOLE 40 MG TABLET PO SCH (09:00)
[2022-05-26] MEDS: SODIUM BICARBONATE 650 MG TABLET PO SCH ×2 (09:00→21:59)
[2022-05-26] MEDS: NICOTINE 21 MG/24 HR PATCH TRANSDERM SCH (09:50)
[2022-05-26] MEDS ORDERED: MIDAZOLAM 2 MG/2 ML VIAL ONE (10:27)
[2022-05-26] MEDS ORDERED: fentaNYL 100 MCG/2 ML VIAL ONE (10:27)
[2022-05-26] MEDS ORDERED: KETAMINE 500 MG/10 ML VIAL ONE (10:28)
[2022-05-26] MEDS ORDERED: TISSUE ADHESIVE 1 EACH APPLICATOR TOP ONE (10:29)
[2022-05-26] MEDS ORDERED: HEPARIN 5,000 UNIT/1 ML VIAL ONE (10:29)
[2022-05-26] MEDS ORDERED: BUPIVACAINE MPF 0.25% 10 ML VIAL ONE (10:29)
[2022-05-26] MEDS ORDERED: LIDOCAINE MPF 1% /EPI 30 ML VIAL ONE (10:29)
[2022-05-26] MEDS ORDERED: SODIUM CHLORIDE 0.9% 250 ML IV SCH (11:00)
[2022-05-26 11:56] LABS: Hepatitis B Surface Ag Quant < 0.10 Index; Hepatitis B Surface Ag Result Non-Reactive (NonReactive)
[2022-05-26] MEDS ORDERED: HEPARIN 10,000 UNIT/10 ML VIAL IV SCH (13:30)
[2022-05-27 05:10] LABS: Basophils # 0.1 10*3/uL (0.0-0.2); Basophils % 0.9 % (0.0-0.8); Eosinophils # 0.1 10*3/uL (0.0-0.87); Eosinophils % 1.6 % (0.00-10.9); Hematocrit 27.7 VOL% (42.0-52.0); Immature Granulocytes % 0.2 %; Immature Granulocytes Absolute 0.01 #; Lymphocytes # 1.3 10*3/uL (1.4-4.0); Lymphocytes % 23.5 % (21.2-54.2); Mean Corpuscular HGB Conc 32.5 GM/DL (32-36); Mean Corpuscular Volume 95.8 FL (87-102); Mean Platelet Volume 10.2 FL (9.6-12.0); Monocytes # 0.5 10*3/uL (0.11-0.8); Monocytes % 8.9 % (1.7-12.7); Neutrophils % 64.9 % (38.7-73.9); Platelet Count 320 T/CUMM (130-400); Red Blood Count 2.89 MC/CUMM (3.8-5.5); Red Cell Distribution Width 13.7 % (9.3-17.3); White Blood Count 5.7 T/CUMM (4-12)
[2022-05-27 05:29] LABS: Calcium 8.2 MG/DL (8.5-10.1); Osmolality,Calculated 287.4 MOS/KG (273-304); Potassium 3.9 MMOL/L (3.5-5.1)
[2022-05-27 06:08] LABS: Hepatitis B Core IgM Quant 0.13 Index; Hepatitis B Surface Ag Quant < 0.10 Index; Hepatitis B Surface Ag Result Non-Reactive (NonReactive); Hepatitis C Virus Ab Quant 0.04 Index; Hepatitis C Virus Ab Result Non-Reactive (NonReactive)
[2022-05-27] MEDS: SODIUM BICARBONATE 650 MG TABLET PO SCH ×2 (08:50→21:47)
[2022-05-27] MEDS: SENNA 8.6 MG TABLET PO SCH (08:50)
[2022-05-27] MEDS: CHOLECALCIFEROL 5,000 UNIT TABLET PO SCH (08:50)
[2022-05-27] MEDS: ASCORBIC ACID 500 MG TABLET PO SCH ×2 (08:50→21:47)
[2022-05-27] MEDS: NICOTINE 21 MG/24 HR PATCH TRANSDERM SCH (08:50)
[2022-05-27] MEDS: PANTOPRAZOLE 40 MG TABLET PO SCH (08:51)
[2022-05-27] MEDS: INSULIN LISPRO 100 UNIT/ML SUBCUT SCH ×4 (08:51→21:47)
[2022-05-27] MEDS: ASPIRIN EC 81 MG TABLET PO SCH (08:51)
[2022-05-28 05:19] LABS: Basophils # 0.1 10*3/uL (0.0-0.2); Basophils % 1.4 % (0.0-0.8); Eosinophils # 0.1 10*3/uL (0.0-0.87); Eosinophils % 1.1 % (0.00-10.9); Hematocrit 27.7 VOL% (42.0-52.0); Immature Granulocytes % 0.2 %; Immature Granulocytes Absolute 0.01 #; Lymphocytes # 1.4 10*3/uL (1.4-4.0); Lymphocytes % 30.5 % (21.2-54.2); Mean Corpuscular HGB Conc 32.5 GM/DL (32-36); Mean Corpuscular Volume 96.5 FL (87-102); Mean Platelet Volume 10.4 FL (9.6-12.0); Monocytes # 0.4 10*3/uL (0.11-0.8); Monocytes % 8.6 % (1.7-12.7); Neutrophils % 58.2 % (38.7-73.9); Platelet Count 300 T/CUMM (130-400); Red Blood Count 2.87 MC/CUMM (3.8-5.5); Red Cell Distribution Width 13.6 % (9.3-17.3); White Blood Count 4.4 T/CUMM (4-12)
[2022-05-28 05:32] LABS: Calcium 8.2 MG/DL (8.5-10.1); Osmolality,Calculated 282.4 MOS/KG (273-304); Potassium 3.7 MMOL/L (3.5-5.1)
[2022-05-28] MEDS: INSULIN LISPRO 100 UNIT/ML SUBCUT SCH ×4 (08:03→23:15)
[2022-05-28] MEDS: SENNA 8.6 MG TABLET PO SCH (09:59)
[2022-05-28] MEDS: SODIUM BICARBONATE 650 MG TABLET PO SCH ×2 (09:59→23:15)
[2022-05-28] MEDS: ASCORBIC ACID 500 MG TABLET PO SCH ×2 (09:59→23:15)
[2022-05-28] MEDS: PANTOPRAZOLE 40 MG TABLET PO SCH (09:59)
[2022-05-28] MEDS: CHOLECALCIFEROL 5,000 UNIT TABLET PO SCH (09:59)
[2022-05-28] MEDS: ASPIRIN EC 81 MG TABLET PO SCH (09:59)
[2022-05-28] MEDS: NICOTINE 21 MG/24 HR PATCH TRANSDERM SCH (12:12)
[2022-05-28] MEDS ORDERED: MAGNESIUM HYDROXIDE SUSP 30 ML UDCUP PO ONE (13:00)
[2022-05-28] MEDS: ACETAMINOPHEN 325 MG TABLET PO PRN (13:28)
[2022-05-28] MEDS: DOCUSATE SODIUM 100 MG CAPSULE PO SCH (23:15)
[2022-05-28] MEDS: APIXABAN 5 MG TABLET PO SCH (23:15)
[2022-05-29 05:43] LABS: Basophils % 0.8 % (0.0-0.8); Eosinophils # 0.1 10*3/uL (0.0-0.87); Eosinophils % 1.3 % (0.00-10.9); Immature Granulocytes % 0.4 %; Immature Granulocytes Absolute 0.02 #; Lymphocytes # 1.5 10*3/uL (1.4-4.0); Lymphocytes % 31.5 % (21.2-54.2); Mean Corpuscular HGB Conc 32.1 GM/DL (32-36); Mean Corpuscular Volume 96.2 FL (87-102); Mean Platelet Volume 10.7 FL (9.6-12.0); Monocytes # 0.5 10*3/uL (0.11-0.8); Platelet Count 288 T/CUMM (130-400); Red Blood Count 2.91 MC/CUMM (3.8-5.5); Red Cell Distribution Width 13.7 % (9.3-17.3); White Blood Count 4.8 T/CUMM (4-12)
[2022-05-29 05:58] LABS: Calcium 8.1 MG/DL (8.5-10.1); Osmolality,Calculated 280.4 MOS/KG (273-304); Potassium 3.7 MMOL/L (3.5-5.1)
[2022-05-29] MEDS: INSULIN LISPRO 100 UNIT/ML SUBCUT SCH ×4 (08:21→23:22)
[2022-05-29] MEDS: NICOTINE 21 MG/24 HR PATCH TRANSDERM SCH (08:58)
[2022-05-29] MEDS: APIXABAN 5 MG TABLET PO SCH ×2 (08:59→23:22)
[2022-05-29] MEDS: SENNA 8.6 MG TABLET PO SCH (08:59)
[2022-05-29] MEDS: DOCUSATE SODIUM 100 MG CAPSULE PO SCH ×2 (08:59→23:22)
[2022-05-29] MEDS: CHOLECALCIFEROL 5,000 UNIT TABLET PO SCH (08:59)
[2022-05-29] MEDS: SODIUM BICARBONATE 650 MG TABLET PO SCH ×2 (08:59→23:23)
[2022-05-29] MEDS: ASPIRIN EC 81 MG TABLET PO SCH (08:59)
[2022-05-29] MEDS: ASCORBIC ACID 500 MG TABLET PO SCH ×2 (08:59→23:23)
[2022-05-29] MEDS: PANTOPRAZOLE 40 MG TABLET PO SCH (08:59)
[2022-05-30 05:13] LABS: Basophils % 0.4 % (0.0-0.8); Eosinophils # 0.1 10*3/uL (0.0-0.87); Eosinophils % 1.7 % (0.00-10.9); Hematocrit 29.4 VOL% (42.0-52.0); Hemoglobin 9.6 GM/DL (14.0-18.0); Immature Granulocytes % 0.4 %; Immature Granulocytes Absolute 0.02 #; Lymphocytes # 1.5 10*3/uL (1.4-4.0); Lymphocytes % 27.6 % (21.2-54.2); Mean Corpuscular HGB Conc 32.7 GM/DL (32-36); Mean Corpuscular Volume 94.2 FL (87-102); Mean Platelet Volume 10.1 FL (9.6-12.0); Monocytes # 0.4 10*3/uL (0.11-0.8); Monocytes % 8.3 % (1.7-12.7); Neutrophils % 61.6 % (38.7-73.9); Platelet Count 257 T/CUMM (130-400); Red Blood Count 3.12 MC/CUMM (3.8-5.5); Red Cell Distribution Width 13.6 % (9.3-17.3); White Blood Count 5.3 T/CUMM (4-12)
[2022-05-30 05:25] LABS: Calcium 8.1 MG/DL (8.5-10.1); Osmolality,Calculated 279.5 MOS/KG (273-304); Potassium 3.7 MMOL/L (3.5-5.1)
[2022-05-30] MEDS: INSULIN LISPRO 100 UNIT/ML SUBCUT SCH ×4 (11:16→21:22)
[2022-05-30] MEDS: ASPIRIN EC 81 MG TABLET PO SCH (12:32)
[2022-05-30] MEDS: APIXABAN 5 MG TABLET PO SCH ×2 (12:32→21:09)
[2022-05-30] MEDS: SODIUM BICARBONATE 650 MG TABLET PO SCH ×2 (12:32→21:08)
[2022-05-30] MEDS: SENNA 8.6 MG TABLET PO SCH (12:32)
[2022-05-30] MEDS: DOCUSATE SODIUM 100 MG CAPSULE PO SCH ×2 (12:32→21:09)
[2022-05-30] MEDS: PANTOPRAZOLE 40 MG TABLET PO SCH (12:32)
[2022-05-30] MEDS: ASCORBIC ACID 500 MG TABLET PO SCH ×2 (12:32→21:09)
[2022-05-30] MEDS: NICOTINE 21 MG/24 HR PATCH TRANSDERM SCH (12:33)
[2022-05-30] MEDS: CHOLECALCIFEROL 5,000 UNIT TABLET PO SCH (12:35)
[2022-05-30] MEDS: ACETAMINOPHEN 325 MG TABLET PO PRN ×2 (12:37→17:56)
[2022-05-31] MEDS: ACETAMINOPHEN 325 MG TABLET PO PRN ×3 (05:35→20:57)
[2022-05-31 05:42] LABS: Basophils % 0.7 % (0.0-0.8); Eosinophils # 0.1 10*3/uL (0.0-0.87); Eosinophils % 2.2 % (0.00-10.9); Hematocrit 28.3 VOL% (42.0-52.0); Hemoglobin 9.2 GM/DL (14.0-18.0); Immature Granulocytes % 0.7 %; Immature Granulocytes Absolute 0.03 #; Lymphocytes # 1.5 10*3/uL (1.4-4.0); Lymphocytes % 32.4 % (21.2-54.2); Mean Corpuscular HGB Conc 32.5 GM/DL (32-36); Mean Corpuscular Volume 94.6 FL (87-102); Mean Platelet Volume 10.2 FL (9.6-12.0); Monocytes # 0.5 10*3/uL (0.11-0.8); Monocytes % 10.7 % (1.7-12.7); Neutrophils % 53.3 % (38.7-73.9); Platelet Count 248 T/CUMM (130-400); Red Blood Count 2.99 MC/CUMM (3.8-5.5); Red Cell Distribution Width 13.5 % (9.3-17.3); White Blood Count 4.5 T/CUMM (4-12)
[2022-05-31 06:00] LABS: Calcium 7.7 MG/DL (8.5-10.1); Osmolality,Calculated 274.8 MOS/KG (273-304); Potassium 3.3 MMOL/L (3.5-5.1)
[2022-05-31] MEDS ORDERED: POTASSIUM CHLORIDE 20 MEQ TABLET PO ONE (08:19)
[2022-05-31] MEDS: ASCORBIC ACID 500 MG TABLET PO SCH ×2 (08:45→20:58)
[2022-05-31] MEDS: PANTOPRAZOLE 40 MG TABLET PO SCH (08:46)
[2022-05-31] MEDS: CLORAZEPATE 3.75 MG TABLET PO PRN ×2 (08:46→20:57)
[2022-05-31] MEDS: DOCUSATE SODIUM 100 MG CAPSULE PO SCH ×2 (08:46→20:57)
[2022-05-31] MEDS: SODIUM BICARBONATE 650 MG TABLET PO SCH ×2 (08:46→20:57)
[2022-05-31] MEDS: SENNA 8.6 MG TABLET PO SCH (08:46)
[2022-05-31] MEDS: CHOLECALCIFEROL 5,000 UNIT TABLET PO SCH (08:46)
[2022-05-31] MEDS: ASPIRIN EC 81 MG TABLET PO SCH (08:46)
[2022-05-31] MEDS: APIXABAN 5 MG TABLET PO SCH ×2 (08:46→20:58)
[2022-05-31] MEDS: NICOTINE 21 MG/24 HR PATCH TRANSDERM SCH (08:47)
[2022-05-31] MEDS: INSULIN LISPRO 100 UNIT/ML SUBCUT SCH ×4 (09:38→20:57)
[2022-06-01 05:01] LABS: Basophils % 0.7 % (0.0-0.8); Eosinophils # 0.1 10*3/uL (0.0-0.87); Eosinophils % 2.1 % (0.00-10.9); Hematocrit 33.1 VOL% (42.0-52.0); Hemoglobin 10.6 GM/DL (14.0-18.0); Immature Granulocytes % 0.5 %; Immature Granulocytes Absolute 0.03 #; Lymphocytes # 1.8 10*3/uL (1.4-4.0); Lymphocytes % 29.4 % (21.2-54.2); Mean Corpuscular Volume 97.1 FL (87-102); Mean Platelet Volume 10.5 FL (9.6-12.0); Monocytes # 0.6 10*3/uL (0.11-0.8); Neutrophils % 57.3 % (38.7-73.9); Platelet Count 213 T/CUMM (130-400); Red Blood Count 3.41 MC/CUMM (3.8-5.5); Red Cell Distribution Width 13.9 % (9.3-17.3); White Blood Count 6.1 T/CUMM (4-12)
[2022-06-01 06:13] LABS: Calcium 7.8 MG/DL (8.5-10.1); Osmolality,Calculated 276.8 MOS/KG (273-304); Potassium 3.6 MMOL/L (3.5-5.1)
[2022-06-01] MEDS: INSULIN LISPRO 100 UNIT/ML SUBCUT SCH ×4 (08:37→20:32)
[2022-06-01] MEDS: SODIUM BICARBONATE 650 MG TABLET PO SCH ×2 (08:38→20:37)
[2022-06-01] MEDS: APIXABAN 5 MG TABLET PO SCH ×2 (08:39→20:37)
[2022-06-01] MEDS: ASCORBIC ACID 500 MG TABLET PO SCH ×2 (08:39→20:37)
[2022-06-01] MEDS: CHOLECALCIFEROL 5,000 UNIT TABLET PO SCH (08:39)
[2022-06-01] MEDS: DOCUSATE SODIUM 100 MG CAPSULE PO SCH ×2 (08:39→20:37)
[2022-06-01] MEDS: ASPIRIN EC 81 MG TABLET PO SCH (08:39)
[2022-06-01] MEDS: NICOTINE 21 MG/24 HR PATCH TRANSDERM SCH (08:39)
[2022-06-01] MEDS: PANTOPRAZOLE 40 MG TABLET PO SCH (08:39)
[2022-06-01] MEDS: SENNA 8.6 MG TABLET PO SCH (08:39)
[2022-06-01] MEDS ORDERED: CLORAZEPATE 3.75 MG TABLET PO PRN (11:27)
[2022-06-01] MEDS ORDERED: SODIUM CHLORIDE 0.9% 250 ML IV ONE ×2 (12:59→14:18)
[2022-06-01] MEDS: ACETAMINOPHEN 325 MG TABLET PO PRN (18:19)
[2022-06-02 04:49] LABS: Basophils % 0.9 % (0.0-0.8); Eosinophils # 0.1 10*3/uL (0.0-0.87); Eosinophils % 2.4 % (0.00-10.9); Hematocrit 28.8 VOL% (42.0-52.0); Hemoglobin 9.2 GM/DL (14.0-18.0); Immature Granulocytes % 0.4 %; Immature Granulocytes Absolute 0.02 #; Lymphocytes # 1.6 10*3/uL (1.4-4.0); Lymphocytes % 33.6 % (21.2-54.2); Mean Corpuscular HGB Conc 31.9 GM/DL (32-36); Mean Corpuscular Volume 96.6 FL (87-102); Mean Platelet Volume 10.8 FL (9.6-12.0); Monocytes # 0.5 10*3/uL (0.11-0.8); Monocytes % 10.4 % (1.7-12.7); Neutrophils % 52.3 % (38.7-73.9); Platelet Count 217 T/CUMM (130-400); Red Blood Count 2.98 MC/CUMM (3.8-5.5); White Blood Count 4.6 T/CUMM (4-12)
[2022-06-02 05:16] LABS: Calcium 7.9 MG/DL (8.5-10.1); Osmolality,Calculated 279.7 MOS/KG (273-304); Potassium 3.7 MMOL/L (3.5-5.1)
[2022-06-02] MEDS: ACETAMINOPHEN 325 MG TABLET PO PRN (07:25)
[2022-06-02] MEDS: INSULIN LISPRO 100 UNIT/ML SUBCUT SCH ×3 (08:25→17:15)
[2022-06-02] MEDS: APIXABAN 5 MG TABLET PO SCH (08:44)
[2022-06-02] MEDS: DOCUSATE SODIUM 100 MG CAPSULE PO SCH (08:44)
[2022-06-02] MEDS: SENNA 8.6 MG TABLET PO SCH (08:44)
[2022-06-02] MEDS: CHOLECALCIFEROL 5,000 UNIT TABLET PO SCH (08:44)
[2022-06-02] MEDS: SODIUM BICARBONATE 650 MG TABLET PO SCH (08:44)
[2022-06-02] MEDS: ASPIRIN EC 81 MG TABLET PO SCH (08:45)
[2022-06-02] MEDS: ASCORBIC ACID 500 MG TABLET PO SCH (08:45)
[2022-06-02] MEDS: NICOTINE 21 MG/24 HR PATCH TRANSDERM SCH (08:48)
[2022-06-02] MEDS: PANTOPRAZOLE 40 MG TABLET PO SCH (08:50)
[2022-06-02] MEDS ORDERED: MIDODRINE 5 MG TABLET PO SCH (09:00)
[2022-06-02 09:36] VITALS: BP 120/76
== END 2022-06-02 16:30 | DRG 871 ==
LOC: N.ED 15:14 → N.EDINP 21:05 → SUATTDRO 21:05 → N.EDINP 22:26 → N.TELES 22:58
PROVIDERS: ADMIT Internal Medicine; ATTEND Internal Medicine

== ENCOUNTER 2022-06-30 03:53 | Inpatient (IN) ==
[2022-06-30 04:15] LABS: Basophils % 0.1 % (0.0-0.8); Hematocrit 34.8 VOL% (42.0-52.0); Hemoglobin 10.1 GM/DL (14.0-18.0); Immature Granulocytes Absolute 0.15 #; Lymphocytes # 0.7 10*3/uL (1.4-4.0); Lymphocytes % 4.5 % (21.2-54.2); Mean Corpuscular Volume 106.4 FL (87-102); Mean Platelet Volume 10.6 FL (9.6-12.0); Monocytes # 0.4 10*3/uL (0.11-0.8); Monocytes % 2.9 % (1.7-12.7); Neutrophils % 91.5 % (38.7-73.9); Platelet Count 383 T/CUMM (130-400); Red Blood Count 3.27 MC/CUMM (3.8-5.5); Red Cell Distribution Width 14.2 % (9.3-17.3); White Blood Count 14.9 T/CUMM (4-12)
[2022-06-30] MEDS ORDERED: LORazepam 2 MG/1 ML VIAL IV STA (04:16)
[2022-06-30] MEDS ORDERED: DEXTROSE 50% 25 GM/50 ML VIAL IV STA (04:16)
[2022-06-30 04:35] LABS: Alanine Aminotransferase 9 U/L (16-61); Albumin 2.1 G/DL (3.4-5.0); Alkaline Phosphatase 79 U/L (45-117); Aspartate Amino Transferase 14 U/L (0-37); Blood Urea Nitrogen 21 MG/DL (7-18); Calcium 8.1 MG/DL (8.5-10.1); Carbon Dioxide 7 MMOL/L (21-32); Chloride 92 MMOL/L (98-107); Osmolality,Calculated 271.8 MOS/KG (273-304); Potassium 3.8 MMOL/L (3.5-5.1); Sodium 137 MMOL/L (136-145); Total Protein 5.1 G/DL (6.4-8.2)
[2022-06-30 04:36] LABS: Glucose 33 MG/DL (74-106)
[2022-06-30] MEDS ORDERED: DEXTROSE 10% 250 ML BAG IV STA (04:38)
[2022-06-30] MEDS ORDERED: DEXTROSE 10% 250 ML IV ONE (04:39)
[2022-06-30] MEDS ORDERED: PIPERACILLIN/TAZOBACTAM 3,375 MG in SODIUM CHLORIDE 0.9% 100 ML IV STA (04:44)
[2022-06-30 04:46] LABS: INR 1.2
[2022-06-30 04:49] LABS: Acanthocytes Few; Lymphocytes 6 % (20-55); Total Cells Counted 100
[2022-06-30 04:50] LABS: Macrocytosis Slight
[2022-06-30 04:51] LABS: Burr Cells Slight
[2022-06-30] MEDS ORDERED: SODIUM BICARBONATE 50 MEQ/50 ML VIAL IV STA ×2 (04:58→05:41)
[2022-06-30] MEDS ORDERED: HYDROCORTISONE 100 MG VIAL IV STA (04:59)
[2022-06-30 05:31] LABS: Arterial Base Excess iSTAT -27 MMOL/L (-2.5-2.5); Arterial O2 Saturation iSTAT 98 % (95-100); Arterial PCO2 iSTAT 13 MM HG (35-48); Arterial PO2 iSTAT 148 MM HG (80-95); Arterial Total CO2 iSTAT < 5 MMO/L (23-27); Arterial pH iSTAT 6.972 (7.35-7.45)
[2022-06-30] MEDS ORDERED: HYDROCORTISONE 100 MG VIAL IV SCH (06:30)
[2022-06-30] MEDS ORDERED: DEXTROSE 10% 1,000 ML IV SCH (06:30)
[2022-06-30 08:31] VITALS: BP 97/70
[2022-06-30] MEDS: MORPHINE 2 MG/1 ML SYRINGE IV PRN ×6 (10:01→23:18)
[2022-06-30] MEDS: LORazepam 2 MG/1 ML VIAL IV PRN ×2 (14:15→22:22)
[2022-07-01] MEDS: MORPHINE 2 MG/1 ML SYRINGE IV PRN ×2 (00:52→06:45)
[2022-07-01] MEDS: LORazepam 2 MG/1 ML VIAL IV PRN ×2 (03:02→08:06)
== END 2022-07-01 09:56 | disposition expired | DRG 951 ==
LOC: SUATTDRO → N.ED 03:53 → N.EDINP 06:04 → N.5E 09:16
PROVIDERS: ADMIT Internal Medicine; ATTEND Internal Medicine